=== PATIENT | male | born 1960 | race Caucasian/White ===

== ENCOUNTER 2018-12-17 13:00 | Inpatient (IN) | payer OTHER ==
[2018-12-17] VITALS (7 sets, daily range): BP systolic 150–227; BP diastolic 70–129
[~2018-12-17] VITALS: Ht 180.3 cm; Wt 126.3 kg
[2018-12-17 13:20] LABS: EOSINOPHILS 0.5 % (0.0-3.0)
[2018-12-17 13:22] LABS: ABSOLUTE NEUTROPHILS 5.5 thou/uL (1.4-8.2); BASOPHILS 0.5 % (0.0-2.0); HEMATOCRIT 50.5 % (42.0-52.0); HEMOGLOBIN 17.6 gm/dL (14.0-18.0); LYMPHOCYTES 27.2 % (24.0-44.0); MCH 30.3 pg (26.0-34.0); MCHC 34.9 g/dL (28.0-37.0); MCV 86.7 fL (80.0-100.0); MONOCYTES 8.1 % (1.0-8.0); PLATELET COUNT 308 thou/uL (150-400); POLYS 63.7 % (36.0-66.0); RBC 5.82 mil/uL (4.50-6.00); RDW 13.5 % (10.5-14.5); WBC 8.6 thou/uL (4.0-11.0)
[2018-12-17 13:27] LABS: CALCIUM 10.3 mg/dL (8.5-10.1); CREATININE 1.1 mg/dL (0.7-1.3); POTASSIUM 3.9 mmol/L (3.5-5.1)
[2018-12-17 13:37] LABS: ALBUMIN 4.5 g/dL (3.4-5.0); TOTAL BILIRUBIN 0.6 mg/dL (<0.1-1.0); TOTAL PROTEIN 8.6 g/dL (6.4-8.2)
[2018-12-17 13:39] LABS: TROPONIN-I 8.32 ng/mL (<0.06)
[2018-12-17 14:24] LABS: APTT 30.9 Seconds (24.5-32.8); PROTIME 10.7 Seconds (9.3-11.4)
--- NOTE | 2018-12-17 15:55 | NUR ---
ADINISTERED IV HYDRAULAZINE FOR BP. WILL CONTINUE TO MONITOR. NAD NOTED.
--- NOTE | 2018-12-17 16:58 | 2DMMODE ---
[facility] [place] [address] 2 D/M-MODE ECHOCARDIOGRAM Name: MARIESRINI [facility] Room #: 170-1 ADM IN M.R.#: [id number] Admission: 12/17/18 Attend Phys: Kilo Carranza Discharge: Date of : 62 Date of Service: 12/17/18 1658 Report #: [id number] THIS REPORT FOR: //name// APPROVED REPORT Study performed: 12/17/2018 15:34:17 EXAM: Comprehensive 2D, Doppler, and color-flow Echocardiogram Patient Location: ER Room #: 1 Status: routine BSA: 2.41 HR: 81 bpm BP: 202/107 mmHg Rhythm: NSR Other Information Study Quality: Adequate Risk Factors: Cardiac Risk Factors: Hyperlipidemia, HTN Indications Chest Pain 2D Dimensions IVSd: 14.24 (7-11mm) LVOT Diam: 20.00 (18-24mm) LVDd: 52.56 mm PWd: 14.25 (7-11mm) Ascending Ao: 35.28 (22-36mm) LVDs: 34.08 (25-40mm) Aortic Root: 28.84 mm LV Single Plane 2CH: 65.82 % Biplane EF: 53.6 % Volumes Left Atrial Volume (Systole) Single Plane 4CH: 49.96 mL Single Plane 2CH: 46.47 mL LA ESV Index: 22.00 mL/m2 Aortic Valve AoV Peak Matthias.: 1.81 m/s AO Peak Gr.: 13.11 mmHg LVOT Max P.12 mmHg LVOT Max V: 1.13 m/s ZHOU Vmax: 1.[address] [facility] [address] [place] [address] 2 D/M-MODE ECHOCARDIOGRAM Name: SRINI SALAZAR BRITTNI Room #: 170-1 [facility] IN [facility]#: [id number] Admission: 12/17/18 Attend Phys: Kilo Carranza Discharge: Date of : 62 Date of Service: 12/17/18 1658 Report #: [id number] Mitral Valve E/A Ratio: 0.8 MV Decel. Time: 232.16 ms MV E Max Matthias.: 0.95 m/s MV A Matthias.: 1.25 m/s MV PHT: 67.33 ms IVRT: 79.58 ms TDI E/Lateral E': 19.00 E/Medial E': 19.00 Medial E' Matthias.: 0.05 m/s Lateral E' Matthias.: 0.05 m/s Pulmonary Valve PV Peak Matthias.: 1.30 m/s PV Peak Gr.: 6.74 mmHg Pulmonary Vein P Vein S: 0.73 m/s P Vein A: 0.26 m/s P Vein D: 0.58 m/s P Vein A Dur.: 83.0 msec P Vein S/D Ratio: 1.26 Tricuspid Valve TR Peak Matthias.: 1.65 m/s RAP Estimate: 7.00 mmHg TR Peak Gr.: 10.83 mmHg PA Pressure: 18.00 mmHg Left Ventricle The left ventricle is normal size. There is normal LV segmental wall motion. Moderate concentric left ventricular hypertrophy. Left ventricular systolic function is normal. The left ventricular ejection fraction is within the normal range. LVEF is 60-65%. Mild diastolic dysfunction is present (impaired relaxation pattern). Right Ventricle The right ventricle is normal size. The right ventricular systolic function is normal. Atria The left atrium size is normal. The right atrium size is normal. Aortic Valve The aortic valve is normal in structure. No aortic regurgitation is present. There is no aortic valvular stenosis. [place] [id number] 2 D/M-MODE ECHOCARDIOGRAM Name: SRINI SALAZAR III Room #: 170-1 [facility] IN .R.#: [id number] Admission: 12/17/18 Attend Phys: Kilo Carranza Discharge: Date of : 62 Date of Service: 12/17/18 1658 Report #: [id number] Mitral Valve The mitral valve is normal in structure. Trace mitral regurgitation. No evidence of mitral valve stenosis. Tricuspid Valve The tricuspid valve is normal in structure. Trace tricuspid regurgitation. Pulmonary artery pressure is 18 mmHg. Pulmonic Valve The pulmonary valve is normal in structure. There is no pulmonic valvular regurgitation. Great Vessels The aortic root is normal in size. The ascending aorta is normal in size. IVC is normal in size and collapses >50% with inspiration. Pericardium There is no pericardial effusion. <Conclusion> The left ventricle is normal size. LVEF is 60-65%. The aortic valve is normal in structure. The mitral valve is normal in structure. Trace mitral regurgitation. The pulmonary valve is normal in structure. There is no pericardial effusion. <ELECTRONICALLY SIGNED> By: Tomas Yancey MD 12/17/18 1658 1658 1658 Tomas Yancey MD /INF
--- NOTE | 2018-12-17 17:16 | NUR ---
REC PT APPROX 1715, ACCOMPANIED BY FAMILY, A&0X4, UP AD DO, REC REPORT, BARRING BP BEING 200S/100S, AND THE ED NURSE CALLED AGAIN TO SAY HIS CP STARTED AGAIN AND SHE GAVE MS WELL ANTIEMETIC. PT SET UP ON TELE, ADMISSION IN PROGRESS, WILL HANG IVF AND ENSURE NEXT LAB IS ENTERED. ROOM AIR. PAIN IN CHECK AT THIS TIME. MENTIONS HE HAD A FEVER PRETTY BAD TEN DAYS AGO. BETTER NOW. ENCOURAGED BOTH TO USE CALL LIGHT FOR ANY NEEDS
[2018-12-18 00:35] VITALS: BP 158/62
[2018-12-18 04:21] VITALS: BP 127/63
--- NOTE | 2018-12-18 04:33 | NUR ---
RECEIVED PT'S CARE AT 1930; PT. AOX4; C/O CHEST PAIN; 07/28; EDUCATED ABOUT CALLING IMMEDIATELY IF PAIN INCREASED; AFTER 10 MINS DURING ROUNDING; PT. RESTLESS; SBP ABOVE 200; PHYSICIAN NOTIFIED; ORDERS RECEIVED; PT. C/O INCREASE PAIN OVER CHEST; 09/27; FIELD EVIDENCE TECHNICIAN SHOWING SR ON THE 70s; PT. RESTLESS; TRYING TO SIT ON THE SIDE OF THE BED; SBP ON THE 180s; MEDICATION GIVEN PER ORDER; CHECK eMAR; PRN PAIN MEDICATION GIVEN; PAIN RE-ASSESSMENT ST. DECREASE PAIN; 09/27; AFTER ABOUT 30 MIN PT. RESTING WITH EYES CLOSED; ST. DECREASE PAIN; 07/28; NEW IV STARTED; SBP ON THE 170s; SCHEDULE MEDICATION GIVEN; AT MIDNIGHT SBP ON THE 150s; ST. PAIN 05/30; PT. NOT ABLE TO REST UNTIL AFTER 0100; HR ON THE 50s; AT 0400 PT'S SBP ON THE 120s; RESTING WITH EYES CLOSED; EDUCATED ABOUT CALLING IF PAIN START INCREASING; HEPARING ADJUSTED BASED ON DOSING SHEET; MONITORING APTT; ASSESSMENT CHARGED; FOLLOWING POC; MONITORING; WILL PASS ON REPORT.
[2018-12-18 06:46] LABS: ABSOLUTE NEUTROPHILS 9.2 thou/uL (1.4-8.2); BASOPHILS 0.4 % (0.0-2.0); EOSINOPHILS 0.1 % (0.0-3.0); HEMATOCRIT 41.9 % (42.0-52.0); HEMOGLOBIN 14.5 gm/dL (14.0-18.0); LYMPHOCYTES 14.6 % (24.0-44.0); MCH 29.8 pg (26.0-34.0); MCHC 34.5 g/dL (28.0-37.0); MCV 86.4 fL (80.0-100.0); MONOCYTES 7.8 % (1.0-8.0); PLATELET COUNT 233 thou/uL (150-400); POLYS 77.1 % (36.0-66.0); RBC 4.85 mil/uL (4.50-6.00); RDW 13.6 % (10.5-14.5); WBC 11.9 thou/uL (4.0-11.0)
[2018-12-18 07:06] LABS: CHOLESTEROL 201 mg/dL (<200); HDL CHOLESTEROL 32 mg/dL (>40); LDL CHOLESTEROL 136 mg/dL (<100); TC:HDL 6.3 Ratio (Not establshd); TRIGLYCERIDE 168 mg/dL (<150); VLDL 34 mg/dL (<40)
--- NOTE | 2018-12-18 08:09 | NUR ---
PT IS A&0X4, HAVING IMMENSE HEADACHE THROUGHOUT THE NIGHT, ADM TYLENOL AND MORPHINE SULFATE W/EDUCATION THAT S/E OF MS COULD ALSO BE HEADACHE AND NITRO RUNNING ALSO HAS SAME S/E. NO TITRATE ORDERS. WILL COMM W/CARDIOLOGY WHEN THEY ROUND TO UPDATE. TROP STILL INCREASING, STUDY DIRECTOR CALLED AND WAS TOLD D/T B/P HIS TROP WOULD CONTINUE TO RISE. B/P WNL THIS A.M. PT DID NOT GET SLEEP LAST NIGHT, NOTE ON DOOR FOR INTERRUPTING ONLY WHEN NECESSARY OR PHYSICIANS. ENCOURAGED BOTH TO USE CALL LIGHT FOR ANY NEEDS
--- NOTE | 2018-12-18 08:18 | NUR ---
SPOKE W/CARDIOLOGY AUTOCAD TECHNICIAN IN [facility] RE: PT'S NITRO BEING TITRATED, NO ORDERS, AND GAVE HER LATEST TROP. SHE STATED MAKE HIM NPO AND OKAY TO TITRATE, DROPPED TO 5ML/HR, WILL CONTINUE TO MONITOR HEP AND LABS.
[2018-12-18 09:29] LABS: CALCIUM 8.7 mg/dL (8.5-10.1); CREATININE 1.1 mg/dL (0.7-1.3); POTASSIUM 4.2 mmol/L (3.5-5.1)
[2018-12-18 11:40] VITALS: BP 136/80
[2018-12-18 14:43] VITALS: BP 132/77
--- NOTE | 2018-12-18 14:47 | NUR ---
REC REPORT FROM [facility] AND HANDED PT'S PAPERS POST CATH, PT RESTING, NO C/O PAIN, WILL DO VS/CHECKS Q 15, SEE DATA FLOW SHEET IN CHART FOR INFO. WILL CHECK ALL ORDERS. EDUCATED PT ON HOW LONG HE NEEDED TO KEEP RIGHT LEG STRAIGHT, R GROIN CDI NO HEMATOMA, BLE PULSES EQUAL, STRONG, WILL CONTINUE TO MONITOR
[2018-12-18 20:41] VITALS: BP 142/63
[2018-12-19] VITALS (8 sets, daily range): BP systolic 91–159; BP diastolic 41–69
[2018-12-19 05:17] LABS: HEMATOCRIT 38.6 % (42.0-52.0); HEMOGLOBIN 13.1 gm/dL (14.0-18.0); MCH 29.7 pg (26.0-34.0); MCHC 33.8 g/dL (28.0-37.0); MCV 87.9 fL (80.0-100.0); RBC 4.39 mil/uL (4.50-6.00); RDW 13.7 % (10.5-14.5); WBC 11.1 thou/uL (4.0-11.0)
--- NOTE | 2018-12-19 05:24 | NUR ---
RECEIVED PT'S CARE AT 1920; PT. ON BED; RESTING WITH EYES CLOSED; SLEEP INTERRUMPT TO ASSESS R. GROIN AREA; DRESSING INTACT; NO HEMATOMA; PULSES PRESENT; NO C/O PAIN; OFF OF BED REST AT 1999; NO HEMATOMA; STAND UP AT THE SIDE OF THE BED TO VOID; NO C/O DIZZINES; NO SOB; NO BLEEDING; THROUGH THE NIGHT NO HEMATOMA; NO C/O PAIN; SBP AT 0400 ON THE 90s; MAP 65; NO C/O PAIN; NO SOB; R. GROIN AREA INTACT; NO HEMATOMA; BP RE-ASSESSMENT SBP OVER 100s; CHECK CHARTING; ASSESSMENT CHARGED; FOLLOWING POC; MONITORING; WILL PASS ON REPORT.
[2018-12-19 05:47] LABS: ALBUMIN 2.9 g/dL (3.4-5.0); CALCIUM 8.4 mg/dL (8.5-10.1); CREATININE 1.2 mg/dL (0.7-1.3); POTASSIUM 3.9 mmol/L (3.5-5.1); TOTAL BILIRUBIN 0.7 mg/dL (<0.1-1.0); TOTAL PROTEIN 6.2 g/dL (6.4-8.2)
--- NOTE | 2018-12-19 13:24 | CATHLAB ---
[facility] [address] [place] [address] INVASIVE PROCEDURE REPORT Name: MARIESRINI [facility] Room #: 203-P [facility] IN .R.#: [id number] Admission: 12/17/18 Attend Phys: Kilo Carranza Discharge: Date of : 62 Date of Service: 12/19/18 1324 Report #: [id number] THIS REPORT FOR: //name// APPROVED REPORT Study performed: 12/18/2018 12:29:23 Patient Details Patient Status: In-Patient Room #: The patient is a 58 year-old male Event Personnel Tomas Yancey Retail Advertising Executive, Valentin Flynn RN RN, Danielle Arora Monitor, Dontrell Harris RTR Scrub Procedures Performed Art Access - R femoral artery* 29035 Initial Mod Sed Same Phys/QHP Gr5y 860509 61631 Mod Sed Same Phys/QHP Ea 807147 Left Heart Cath w/or w/o Coronaries [id number] [facility] S[facility] Place w/wo Plasty Single CIRC 821560 Hemostasis w/ Mynx, supervision of conscious sedation Indication Non-STEMI (>12 hrs to = 24 hrs), Chest pain Procedure Narrative The patient was brought urgently to the Cardiac Catheterization Laboratory and was prepped and draped in a sterile manner. The Right Groin^ was infiltrated with 1% Lidocaine subcutaneous anesthesia. A 6 fr sheath sheath was inserted into the RFA^. Coronary angiography was performed using coronary diagnostic catheters. The right coronary system was accessed and visualized with a JR 4 catheter. The left coronary system was accessed and visualized with a JL 4 catheter. The left ventricle was accessed and visualized with a JR 4 catheter. Left ventricular/Aortic Valve gradient assessed via catheter pullback. Closure device was deployed with a 6 Fr Mynx. The patient tolerated the procedure well and there were no complications associated with the procedure. Intraoperative Conscious Sedation Sedation start time: 13:20 Case end Time: 14:15 Fluoro Time: 13.20 minutes Dose: DAP 54249.00 cGycm2 2789 mGy [facility] [address] [place] [address] INVASIVE PROCEDURE REPORT Name: SRINI SALAZAR [facility] Room #: 203-P [facility] IN ..#: [id number] Admission: 12/17/18 Attend Phys: Kilo Carranza Discharge: Date of : 62 Date of Service: 12/19/18 1324 Report #: [id number] Contrast Type and Amount: Omnipaque 200 ml Coronary Angiography The patient's coronary anatomy is right dominant. Diagnostic Cath Left Main Left main is normal origin and caliber bifurcates that anterior descending left circumflex free of high-grade disease LAD Moderate caliber type II vessel which courses in the anterior interventricular sulcus. His rise to a small to moderate size first time no branch and continues in the sulcus of whether is a region IV centricity of less than 50%. The vessel then rapidly tapers with diffuse disease as it courses towards the apex and terminates as a bifurcating vessel the left ventricular apical wall Diagonal 1 Small-caliber multi-branching vessel with luminal irregularities but no high-grade lesions present Circumflex Completely occluded proximally without evidence of collateralized flow Post intervention: The vessel is patent with of previous occlusion occurred. This is a mild plaque proximally of 30% which is nonflow limiting. The circumflex marginal (towards the apex and it becomes Rakesh small-caliber vessel of less than 1 mm in diameter. There is appears to be a 75% lesion in the distal fourth of this vessel. Flow beyond this appears to be at least MALACHI 2 Right Coronary Part to large caliber vessel of normal origin with luminal irregularities present. He can continues in the AV groove to the acute marginal and a small RV marginal branch originates. The RCA continues to the crux of the heart is versus small posterior descending artery with only luminal irregularities and no high-grade lesions. The terminal portion of the right coronary artery is a small non-significant caliber posterior wall branch R PDA Small to moderate caliber vessel with luminal irregularities no high-grade lesions present as it courses towards the apex and the posterior interventricular sulcus IVUS Findings Sprinter OTW 2.5 x 20 Hemodynamics The aortic pressure is 132/80 mmHg with a mean of 98 mmHg. The left ventricular pressure is 154/14 mmHg with a mean of mmHg. The left ventricular end diastolic pressure is 41 mmHg. [facility] [address] [place] [address] INVASIVE PROCEDURE REPORT Name: MARIESRINI Abernathy III Room #: 203-P ADM IN M.R.#: [id number] Admission: 12/17/18 Attend Phys: Kilo Carranza Discharge: Date of : 62 Date of Service: 12/19/18 1324 Report #: [id number] PCI Technique A standard Eren left 4 curved catheter was advanced and cannulated with a left coronary system. A floppy wire was advanced and manipulated with some effort beyond the lesion. A 2.5 mm balloon was then utilized to serially dilate sequentially throughout the occluded vessel ON antegrade flow was noted. The antegrade flow appeared to be a significant size vessel and subsequent to this a Medtronic SABRINA 2.5 mm x 26 mm stent was positioned and deployed proximally. Post deployment dilatation was carried forth with brisk flow being noted. Patient procedure well there were no complications. PCI Technique Lesion Percutaneous coronary intervention was performed on the proximal circumflex artery segment. A Medtronic JL 4 Guide Catheter was used to engage the ostium. A J tip Luge wire Interventional Guidewire was used to cross the lesion. BALLOON DILATION A Balloon catheter Sprinter OTW 2.5 x 12 was inserted and inflated up to 6.00atm for 12seconds. Additional Inflation: 10.00atm for 17seconds. Additional Inflation: 14.00atm for 10seconds. STENT DEPLOYMENT A drug-eluting stent Resolute Abdullahi OTW 2.5 x 26 was inserted and inflated up to 14.00atm for 12seconds. BALLOON DILATION A Balloon catheter Sprinter OTW 2.5 x 20 was inserted and inflated up to 10.00atm for 45seconds. Additional Inflation: 10.00atm for 71seconds. Conclusion 1. Coronary disease severe single-vessel moderate two-vessel 2. Abnormal dynamics of the left ventricular end-diastolic pressure 3. Successful percutaneous vascular duration of a totally occluded left circumflex artery Recommendations Cardiac Risk Reduction Program Aggressive Medical Therapy [facility] [address] [place] [address] INVASIVE PROCEDURE REPORT Name: SRINI SALAZAR III Room #: 203-P ADM IN M.R.#: [id number] Admission: 12/17/18 Attend Phys: Kilo Carranza Discharge: Date of : 62 Date of Service: 12/19/18 1324 Report #: [id number] Medications Administered Prasugrel <ELECTRONICALLY SIGNED> By: Tomas Yancey MD 12/19/18 1324 23 23 Tomas Yancey MD /INF
--- NOTE | 2018-12-20 02:08 | NUR ---
ASSESSMENT CHARTED. RIGHT GROIN SITE IS CLEAN, DRY, SOFT. PATIENT IS UP AT DO IN ROOM. DENIES PAIN. PLAN IS TO GO HOME IN AM.
[2018-12-20 04:21] VITALS: BP 110/48
[2018-12-20 08:23] VITALS: BP 146/62
[2018-12-20] MEDS ORDERED: EFFIENT10 MG PO (09:07)
[2018-12-20] MEDS ORDERED: LOPRESSOR25 PO (09:08)
[2018-12-20] MEDS ORDERED: BENAZEPRIL HCL5 MG PO (09:08)
[2018-12-20] MEDS ORDERED: ASPIRIN325 PO (09:08)
[2018-12-20] MEDS ORDERED: CRESTOR20 MG PO (09:11)
[2018-12-20 10:38] VITALS: BP 146/62
[2018-12-20 10:42] VITALS: BP 146/62
[2018-12-20 10:44] VITALS: BP 146/62
--- NOTE | 2018-12-20 10:53 | NUR ---
AAOX4. DISCHARGING TO HOME. DR. MCGOVERN CALLED TO SWITCH LOTENSIN TO LISINOPRIL ORDERED BY DR. MOSS.
[2018-12-20 12:05] VITALS: BP 124/85
--- NOTE | 2018-12-21 07:40 | EKG ---
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 : 1960 Requested By: Daniel Villarreal Order Number: [id number] MD: Grant Faria Measurements Intervals [place] Rate: 60 P: 55 [place]: 118 QRS: -16 QRSD: 111 T: 31 QT: 427 QTc: 427 Interpretive Statements Sinus rhythm RSR' in V1 or V2, right VCD Baseline wander in lead(s) V4 No previous ECG available for comparison Electronically Signed On 12-21-2018 7:40:41 CDT by Grant Faria [email or web address] <ELECTRONICALLY SIGNED> By: Grant Faria MD, [facility] 12/21/18 0740 1257 1257 Grant Faria MD, [facility] /EPI
--- NOTE | 2018-12-21 07:41 | EKG ---
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
--- NOTE | 2018-12-21 08:01 | EKG ---
[place] [address] [facility] [email or web address] [address] ELECTROCARDIOGRAM REPORT Name: SRINI SALAZAR III Room #: 203-[facility] IN M.R.#: [id number] Admission: 12/17/18 Attend Phys: Kilo Ball Discharge: 12/20/18 Date of : 62 Report #: [id number] THIS REPORT FOR: //name// [facility] Test Date: 2018-12-18 Test Time: 07:23:24 Pat Name: SRINI SALAZAR Department: Room: 203 Gender: M Neonatal Specialist: KRUPA : 1960 Requested By: Abril Denson Order Number: [id number] MD: Grant Faria Measurements Intervals [place] Rate: 65 P: 59 [place]: 123 QRS: 2 QRSD: 113 T: 64 QT: 404 QTc: 421 Interpretive Statements Sinus rhythm Early R-wave progression Nonspecific T wave abnormality No previous ECG available for comparison Electronically Signed On 12-21-2018 8:00:50 CDT by Grant Faria [email or web address] <ELECTRONICALLY SIGNED> By: Grant Faria MD, [facility] 12/21/18 08 2 2 Grant Faria MD, FACC /EPI
== END 2018-12-20 13:17 | disposition home or self-care (01) | DRG 246 ==
LOC: ER 13:00 → EROBS 14:07 → 2N 17:02
PROVIDERS: Emergency Medicine; Internal Medicine; Nurse Practitioner; ADMIT Hospitalist
PROC: 4A023N7 Measurement of Cardiac Sampling and Pressure, Left Heart, Percutaneous Approach (ICD-10-PCS; principal; 2018-12-18)
PROC: B2111ZZ Fluoroscopy of Multiple Coronary Arteries using Low Osmolar Contrast (ICD-10-PCS; 2018-12-18)
PROC: B2151ZZ Fluoroscopy of Left Heart using Low Osmolar Contrast (ICD-10-PCS; 2018-12-18)
PROC: 027034Z Dilation of Coronary Artery, One Artery with Drug-eluting Intraluminal Device, Percutaneous Approach (ICD-10-PCS; 2018-12-18)
DX: I21.4 Non-ST elevation (NSTEMI) myocardial infarction (principal); I50.31 Acute diastolic (congestive) heart failure; I24.9 Acute ischemic heart disease, unspecified; I10 Essential (primary) hypertension; I16.0 Hypertensive urgency; E78.5 Hyperlipidemia, unspecified; I25.82 Chronic total occlusion of coronary artery; I45.10 Unspecified right bundle-branch block; I25.10 Atherosclerotic heart disease of native coronary artery without angina pectoris; E66.9 Obesity, unspecified; Z68.38 Body mass index [BMI] 38.0-38.9, adult; Z91.14 Patient's other noncompliance with medication regimen; Z98.52 Vasectomy status; Z82.49 Family history of ischemic heart disease and other diseases of the circulatory system
CPT/HCPCS: 10081

== ENCOUNTER 2020-08-16 08:27 | Observation (INO) | payer OTHER ==
[~2020-08-16] VITALS: Ht 180.3 cm; Wt 127.0 kg
[2020-08-16] VITALS (8 sets, daily range): BP systolic 121–194; BP diastolic 53–132
--- NOTE | ~2020-08-16 | P ---
[facility] [place] [address] PROCEDURE REPORT Name: SRINI SALAZAR III Room #: [address] [place] [address] Sunni Mandujano#: [id number] Admission: 08/16/20 Attend Phys: Marlon Villalba MD Discharge: 08/17/20 Date of : 62 Report #: [id number] THIS REPORT FOR: cc: FAM - Family physician unknown FAM - Family physician unknown Atif Pastor MD ~ DOC #: [id number] cc: Grant Faria MD [facility], MD Atif Young MD DATE OF SERVICE: 08/17/2020 PROCEDURE PERFORMED: Upper endoscopy with biopsies. HISTORY OF PRESENT ILLNESS: The patient is a 59-year-old male with recent chest pain. Cardiac workup has been negative including a stress echocardiogram done earlier today, which showed old possible scarring, but no acute changes. He denies any significant heartburn symptoms. No previous history of endoscopies. He has tried ajjk-csn-nramfnf Tums and antacids without much improvement. Plan is for upper endoscopy. He was taking ibuprofen 400 b.i.d. DESCRIPTION OF PROCEDURE: The risks and benefits of the procedure were explained to the patient, those risks including but not limited to bleeding, perforation and the risk of sedation. He understood these risks and gave informed consent. Sedation was given using propofol per anesthesia. Next, using a standard Olympus upper endoscope, the scope was placed in the patient's mouth and advanced under direct vision through the esophagus, stomach and into the second portion of the duodenum. The larynx was normal in appearance. The upper and mid esophagus were normal. In the distal esophagus at the GE junction, grade B erosive esophagitis was noted. No evidence of bleeding. Overall, the gastric mucosa was normal in the fundus and upper body; however, in the distal body and antrum multiple clean white based ulcers were noted. These were small, approximately 3-5 mm in size. No evidence of bleeding. Biopsies were obtained to rule out H. pylori. The pylorus was normal and patent. The duodenal bulb, first and second portion were all normal. The scope was then withdrawn and the procedure terminated. The patient tolerated the procedure well. IMPRESSION: 1. Multiple gastric antral ulcers, superficial. No evidence of bleeding. Biopsies obtained may be secondary to NSAID use. 2. Grade B erosive esophagitis. 3. Otherwise, normal upper endoscopy. RECOMMENDATIONS: 1. Await biopsy results. [address] [address] PROCEDURE REPORT Name: SRINI SALAZAR III Room #: 357-P [facility] Sunni Mandujano#: [id number] Admission: 08/16/20 Attend Phys: Marlon Villalba MD Discharge: 08/17/20 Date of : 62 Report #: [id number] 2. Would recommend daily PPI therapy long-term. Thank you for allowing me to participate in his care. Atif Pastor MD [facility] By: 1257 0518 Atif Pastor MD /nt
[~2020-08-16 08:27] MED LIST: ASPIRIN325 PO; BENAZEPRIL HCL5 MG PO; CRESTOR20 MG PO; EFFIENT10 MG PO; LOPRESSOR25 PO
[2020-08-16] MEDS ORDERED: VALSARTAN80 MG PO (08:37)
[2020-08-16 08:59] LABS: ABSOLUTE NEUTROPHILS 2.9 thou/uL (1.4-8.2); BASOPHILS 0.6 % (0.0-2.0); HEMATOCRIT 45.5 % (42.0-52.0); HEMOGLOBIN 15.6 gm/dL (14.0-18.0); LYMPHOCYTES 38.1 % (24.0-44.0); MCH 30.9 pg (26.0-34.0); MCHC 34.3 g/dL (28.0-37.0); MCV 90.2 fL (80.0-100.0); MONOCYTES 7.8 % (1.0-8.0); PLATELET COUNT 176 thou/uL (150-400); POLYS 51.5 % (36.0-66.0); RBC 5.04 mil/uL (4.50-6.00); RDW 13.1 % (10.5-14.5); WBC 5.7 thou/uL (4.0-11.0)
[2020-08-16 09:08] LABS: ANION GAP 10 mmol/L (7-16); BUN 15 mg/dL (7-18); CALCIUM 8.8 mg/dL (8.5-10.1); CHLORIDE 106 mmol/L (98-107); CO2 26 mmol/L (21-32); GLUCOSE 120 mg/dL (74-106); POTASSIUM 3.9 mmol/L (3.5-5.1); SODIUM 142 mmol/L (136-145)
[2020-08-16 09:18] LABS: ALBUMIN 4.1 g/dL (3.4-5.0); SGOT 22 U/L (15-37); SGPT 47 U/L (16-63); TOTAL BILIRUBIN 0.6 mg/dL (0.2-1.0); TOTAL PROTEIN 7.5 g/dL (6.4-8.2); TROPONIN-I <0.06 ng/mL (<0.06)
[2020-08-16 10:43] LABS: INR 1.01
--- NOTE | 2020-08-16 13:03 | EKG ---
[address] [place] [address] ELECTROCARDIOGRAM REPORT Name: SRINI SALAZAR III Room #: 357-P ADM IN M.R.#: [id number] Admission: 08/16/20 Attend Phys: Marlon Villalba MD Discharge: Date of : 62 Report #: [id number] [facility] ED Test Date: 2020-08-16 Test Time: 08:34:05 Pat Name: SRINI SALAZAR Department: Room: 357 Gender: M Fingernail Sculptor: JCHAISYDNEY : 1960 Requested By: Vazquez Barnett Order Number: [id number] MD: Tree Kauffman Measurements Intervals [place] Rate: 53 P: 58 [place]: 132 QRS: -19 QRSD: 117 T: 52 QT: 441 QTc: 414 Interpretive Statements Sinus rhythm Nonspecific intraventricular conduction delay Compared to ECG 12/18/2018 07:23:24 Intraventricular conduction delay now present T-wave abnormality no longer present Electronically Signed On 08-16-2020 13:02:56 CDT by Tree Kauffman [email or web address] <ELECTRONICALLY SIGNED> By: Tree Kauffman MD, [facility] 08/16/20 1302 Tree Kauffman MD, FAC /EPI
--- NOTE | 2020-08-16 13:03 | EKG ---
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
--- NOTE | 2020-08-16 17:08 | NUR ---
PT ADMITTED AT NOON TO ROOM 357, PT ALERT AND ORIENTED X4. PT DENIES ANY CHEST PAIN, NUMBNESS AND TINGLING. CARDIAC MIONITOR PLACED ON PT, SINUS JEANNA. PT IS ON RROM AIR, NO SIGNS OF DISTRESS NOTED. ORIENTED TO ROOM, CONSENTS SIGNED BY PT. ADDMISSION AND ASSESSMENT COMPLTED. SKIN INTACT. CALL LIGHT IN PLACE. DENIES ANY NEEDS AT THE MOMENT. WILL CONTINUE TO MONITOR.
[2020-08-17] VITALS (7 sets, daily range): BP systolic 48–152; BP diastolic 28–83
[2020-08-17 01:06] LABS: GLYCOHEMOGLOBIN (HGB A1C) 5.7 % (4.8-5.6)
--- NOTE | 2020-08-17 04:45 | NUR ---
Pt. slept some , got very upset this am when he got woken up for vitals signs. Denies any chest pain or shortness of breath. Kept NPO for Stress test and EGD today.
[2020-08-17 04:58] LABS: HEMOGLOBIN 15.2 gm/dL (14.0-18.0); MCH 31.1 pg (26.0-34.0); MCHC 34.4 g/dL (28.0-37.0); MCV 90.2 fL (80.0-100.0); RBC 4.88 mil/uL (4.50-6.00); RDW 13.4 % (10.5-14.5); WBC 9.1 thou/uL (4.0-11.0)
[2020-08-17 04:59] LABS: CALCIUM 8.5 mg/dL (8.5-10.1); POTASSIUM 4.1 mmol/L (3.5-5.1)
--- NOTE | 2020-08-17 08:57 | NUR ---
care assumed at 0700, pt alert and oriented x4, denies any chest pain, nausea or vomitting. pt npo for egd and stress test this am. metoprolol held due to stress test. denies any needs at the moment. will continue to monitor.
[2020-08-17] MEDS ORDERED: CRESTOR20 MG PO (09:44)
[2020-08-17] MEDS ORDERED: TOPROL XL25 MG PO (09:44)
[2020-08-17] MEDS ORDERED: DIOVAN320 MG PO (09:44)
--- NOTE | 2020-08-17 10:38 | NUR ---
Received order for diet education. Admit with chest pain. Does have hx CAD, hyperlipidemia and wt obese, BMI 39. However, suspected chest pain possibly GI related and pt off unit for EGD at this time. Left detailed information at bedside on diet for reflux and heart healthy choices. RD name/number left for any questions pt may have. Also note, A1C was measured and 5.7 wnl.
--- NOTE | 2020-08-17 15:03 | NUR ---
INITIAL ASSESSMENT: Received consult. SW reviewed chart and spoke with attending physician. Pt was admitted from home due to chest pain. Pt to have EGD and stress test today. Pt may be stable for discharge later today following results of these tests. Pt off the unit during SW visit. Per chart, pt is alert/orientated x 4. Pt lives at home with his . Pt is independent with ADLs. No discharge needs anticipated at this time. SW is available to assist should needs arise.
[2020-08-17] MEDS ORDERED: PROTONIX40 M4 PO (15:16)
[2020-08-17] MEDS ORDERED: NORCO5 PO (16:10)
--- NOTE | 2020-08-17 16:48 | NUR ---
D/C INSTRUCTION AND NEW MED INFO GIVEN TO PT. PT EDUCATED ABAOUT AVOIDING NSAIDS. IV AND TELE D/C. ALL BELONGINGS PACKED. PT TAKEN DOWN VIA WHEELCHAIR.
== END 2020-08-17 16:55 | disposition home or self-care (01) ==
LOC: ER 08:27 → EROBS 10:15 → 3W 10:15
PROVIDERS: Emergency Medicine; Internal Medicine; ADMIT Hospitalist; ATTEND Hospitalist
DX: R07.89 Other chest pain (principal); Z20.822 Contact with and (suspected) exposure to COVID-19; I25.10 Atherosclerotic heart disease of native coronary artery without angina pectoris; E78.5 Hyperlipidemia, unspecified; M87.052 Idiopathic aseptic necrosis of left femur; I25.2 Old myocardial infarction; Z79.82 Long term (current) use of aspirin; Z79.899 Other long term (current) drug therapy
CPT/HCPCS: 10879; 70005